=== PATIENT | female | born 1990 | race American Indian/Alaskan Native ===

== ENCOUNTER 2020-03-28 09:44 | Emergency (ER) | payer SELFPAY ==
--- NOTE | 2020-03-28 10:42 | XRay Report ---
CHEST PA AND LATERAL VIEWS INDICATION: Chest Pain. COMPARISON: None. FINDINGS: Support devices: None. Heart: Within normal limits. Lungs/Pleura: No acute pulmonary or pleural findings. IMPRESSION: 1. No acute findings. Signer Name: Javid Galvez MD Signed: 03/28/2020 10:38 AM Workstation Name: [id number]
--- NOTE | 2020-03-28 11:12 | Emergency Department Report ---
ED General Adult HPI - General Chief complaint: Chest Pain Stated complaint: CHEST PAIN Time Seen by Provider: 03/28/20 10:51 Source: patient Mode of arrival: Ambulatory Limitations: No Limitations - History of Present Illness Initial comments: Patient is a 29-year-old female presents emergency room with complaints of chest tightness and pressure that began a couple of months ago. she states that occasionally she has mild shortness of breath and discomfort with breathing. Patient states that over the last few months she began smoking marijuana and black in [place]. She states that every time she smokes she has pain. She states occasionally she feels nausea. She denies any vomiting, diarrhea, fever, cough, leg swelling. She states that she did have text for COVID-19 at the end of January but she states that she tested negative. She denies any past medical history. No allergies medications. Last menstrual cycle March 18. She denies any recent travel, recent surgery, immobilization, hormone use. She denies any family cardiac history, she denies any family history of DVT or PE. - Related Data Previous Rx's Medication Instructions Recorded Last Taken Type Famotidine [Pepcid] 40 mg PO QHS #14 tablet 03/28/20 Unknown Rx Naproxen [EC-Naprosyn] 375 mg PO BID #14 tablet. 03/28/20 Unknown Rx Prednisone [predniSONE 10 mg 10 mg PO .TAPER #1 tab.ds.pk 03/28/20 Unknown Rx (6-Day Pack, 21 Tabs)] Allergies Allergy/AdvReac Type Severity Reaction Status Date / Time No Known Allergies Allergy Unverified 03/28/20 09:49 ED Review of Systems ROS: Stated complaint: CHEST PAIN Other details as noted in HPI Comment: All other systems reviewed and negative ED Past Medical Hx - Past Medical History Previous Medical History?: No - Surgical History Past Surgical History?: No - Social History Smoking Status: Former Smoker Substance Use Type: Marijuana - Medications Home Medications: Home Medications Medication Instructions Recorded Confirmed Last Taken Type Famotidine [Pepcid] 40 mg PO QHS #14 tablet 03/28/20 Unknown Rx Naproxen [EC-Naprosyn] 375 mg PO BID #14 tablet. 03/28/20 Unknown Rx Prednisone [predniSONE 10 mg 10 mg PO .TAPER #1 tab.ds.pk 03/28/20 Unknown Rx (6-Day Pack, 21 Tabs)] ED Physical Exam - General Limitations: No Limitations General appearance: alert, in no apparent distress - Head Head exam: Present: atraumatic, normocephalic - Eye Eye exam: Present: normal appearance - ENT ENT exam: Present: mucous membranes moist - Respiratory Respiratory exam: Present: normal lung sounds bilaterally. Absent: respiratory distress, wheezes, rales, rhonchi, stridor, chest wall tenderness, accessory muscle use, decreased breath sounds, prolonged expiratory - Cardiovascular Cardiovascular Exam: Present: regular rate, normal rhythm, normal heart sounds. Absent: systolic murmur, diastolic murmur, rubs, gallop - Neurological Exam Neurological exam: Present: alert, oriented X3 - Psychiatric Psychiatric exam: Present: normal affect, normal mood - Skin Skin exam: Present: warm, dry, intact ED Course Vital Signs 03/28/20 03/28/20 03/28/20 09:49 09:50 11:28 Temperature 98.3 F 98.3 F Pulse Rate 63 55 L 43 L Respiratory 16 16 Rate Blood Pressure 131/72 131/72 119/75 O2 Sat by Pulse 98 99 99 Oximetry 03/28/20 11:30 Temperature Pulse Rate 58 L Respiratory 18 Rate Blood Pressure O2 Sat by Pulse 99 Oximetry ED Medical Decision Making - Lab Data Vital Signs 03/28/20 03/28/20 03/28/20 09:49 09:50 11:28 Temperature 98.3 F 98.3 F Pulse Rate 63 55 L 43 L Respiratory 16 16 Rate Blood Pressure 131/72 131/72 119/75 O2 Sat by Pulse 98 99 99 Oximetry 03/28/20 11:30 Temperature Pulse Rate 58 L Respiratory 18 Rate Blood Pressure O2 Sat by Pulse 99 Oximetry - EKG Data EKG shows normal: sinus rhythm, axis, intervals, QRS complexes, ST-T waves Rate: bradycardia - EKG Data 03/28/20 11:13 PAC no STEMI no signs of ischemia - Radiology Data Radiology results: report reviewed CHEST PA AND LATERAL VIEWS INDICATION: Chest Pain. COMPARISON: None. FINDINGS: Support devices: None. Heart: Within normal limits. Lungs/Pleura: No acute pulmonary or pleural findings. IMPRESSION: 1. No acute findings. Signer Name: Javid Galvez MD Signed: 03/28/2020 10:38 AM Workstation Name: [id number] Transcribed By: WILDER Dictated By: Javid Galvez MD Electronically Authenticated By: Javid Galvez MD Signed Date/Time: 03/28/20 1038 DD/ 1038 TD/TT: - Medical Decision Making Patient is a 29-year-old female presents emergency room with complaints of chest tightness and pressure that began a couple of months ago. she states that occasionally she has mild shortness of breath and discomfort with breathing. Patient states that over the last few months she began smoking marijuana and black in [place]. She states that every time she smokes she has pain. She states occasionally she feels nausea. She denies any vomiting, diarrhea, fever, cough, leg swelling. She states that she did have text for COVID-19 at the end of January but she states that she tested negative. She denies any past medical history. No allergies medications. Last menstrual cycle March 18. She denies any recent travel, recent surgery, immobilization, hormone use. She denies any family cardiac history, she denies any family history of DVT or PE. Vitals are normal. On exam breath sounds are clear bilaterally, no wheezing, no rhonchi, no rales, good air movement, patient is able to take it full inspiratory breath without regular rate and rhythm. EKG with sinus bradycardia, PAC, otherwise normal. CXR: 1. No acute findings. PERC criteria negative for PE, Wells score is 0, very low risk for PE. Patient does not have any cardiac risk factors other than smoking, this has been ongoing for months, ACS very unlikely. She states that she mostly feels the symptoms after smoking. She has no wheezing or rales. She has no clinical signs of bacterial pneumonia or bronchitis. Symptoms likely could be related to her smoking use. Could be related to pleuritis versus acid reflux. Patient will be given prescription for naproxen, prednisone, Pepcid. Advised patient Please take medication as prescribed. Follow-up with your primary care doctor. Return to emergency room for any new or worsening symptoms. - Differential Diagnosis anxiety, smoking rxn, URI, viral syndrome, PNA, pericarditis,pleuritis,GERD Critical care attestation.: If time is entered above; I have spent that time in minutes in the direct care of this critically ill patient, excluding procedure time. ED Disposition Clinical Impression: Chest tightness, Pleuritis Disposition: -01 TO HOME OR SELFCARE Is pt being admited?: No Does the pt Need Aspirin: No Condition: Stable Instructions: Pleurisy (ED), Gastroesophageal Reflux in Children (ED), Diet for Ulcers and Gastritis (ED) Additional Instructions: Please take medication as prescribed. Follow-up with your primary care doctor. Return to emergency room for any new or worsening symptoms. Prescriptions: Famotidine [Pepcid] 40 mg PO QHS #14 tablet Naproxen [EC-Naprosyn] 375 mg PO BID #14 tablet. Prednisone [predniSONE 10 mg (6-Day Pack, 21 Tabs)] 10 mg PO .TAPER #1 tab.ds.pk Referrals: PRIMARY CARE, [Primary Care Provider] - 2-3 Days CHYNA RENE MD [Staff Physician] - 2-3 Days [facility] [Provider Group] - 2-3 Days [facility], [LAB/CONTRACT] - 2-3 Days Time of Disposition: 11:14 Print Language: TURKMEN
[2020-03-28 11:54] VITALS: BP 119/75
== END 2020-03-28 11:30 | disposition home or self-care (01) ==
LOC: ED 09:44
DX: R09.1 Pleurisy (principal); F12.10 Cannabis abuse, uncomplicated; F17.200 Nicotine dependence, unspecified, uncomplicated; Z79.899 Other long term (current) drug therapy
CPT/HCPCS: 71046; 93005; 99283

== ENCOUNTER 2020-12-03 20:01 | Emergency (ER) | payer SELFPAY ==
[2020-12-03 21:33] VITALS: BP 124/88
[2020-12-03] MEDS ORDERED: ONDANSETRON 4 MG ODT TAB PO ONE (22:00)
[2020-12-03] MEDS ORDERED: ACETAMINOPHEN 500 MG TAB PO ONE (22:14)
--- NOTE | 2020-12-03 22:21 | Emergency Department Report ---
ED General Adult HPI - General Chief complaint: Nausea/Vomiting/Diarrhea Stated complaint: HEAD ACHES/HOT FLASHES Time Seen by Provider: 12/03/20 22:00 Source: patient Mode of arrival: Ambulatory Limitations: No Limitations - History of Present Illness Initial comments: Patient a 29-year-old female who presents for nausea headache and hot flashes for the past 2 days. Patient states she was recently released from skilled nursing. States questionable Covid contact. However there is been no fevers, chills, shortness of breath no cough no diarrhea. Symptoms are exacerbated by activity. Symptoms are relieved by nothing tried. - Related Data Previous Rx's Medication Instructions Recorded Last Taken Type Famotidine [Pepcid] 40 mg PO QHS #14 tablet 03/28/20 Unknown Rx Naproxen [EC-Naprosyn] 375 mg PO BID #14 tablet. 03/28/20 Unknown Rx Prednisone [predniSONE 10 mg 10 mg PO .TAPER #1 tab.ds.pk 03/28/20 Unknown Rx (6-Day Pack, 21 Tabs)] Butalb/Acetaminophen/Caffeine 1 cap PO Q6HR PRN #12 cap 12/04/20 Unknown Rx [Fioricet 50-300-40 mg CAP] Allergies Allergy/AdvReac Type Severity Reaction Status Date / Time No Known Allergies Allergy Unverified 03/28/20 09:49 ED Review of Systems ROS: Stated complaint: HEAD ACHES/HOT FLASHES Other details as noted in HPI Constitutional: denies: chills, fever Eyes: denies: eye pain, eye discharge, vision change ENT: congestion. denies: ear pain, throat pain Respiratory: denies: cough, shortness of breath, wheezing Cardiovascular: denies: chest pain, palpitations Endocrine: no symptoms reported Gastrointestinal: nausea. denies: diarrhea, constipation Genitourinary: denies: urgency, dysuria, frequency, hematuria, discharge Musculoskeletal: denies: back pain, joint swelling, arthralgia Skin: denies: rash, lesions Neurological: headache. denies: weakness, paresthesias Psychiatric: denies: anxiety, depression Hematological/Lymphatic: denies: easy bleeding, easy bruising ED Past Medical Hx - Past Medical History Previous Medical History?: No - Surgical History Past Surgical History?: No - Social History Smoking Status: Current Every Day Smoker Substance Use Type: Alcohol, Marijuana - Medications Home Medications: Home Medications Medication Instructions Recorded Confirmed Last Taken Type Famotidine [Pepcid] 40 mg PO QHS #14 tablet 03/28/20 Unknown Rx Naproxen [EC-Naprosyn] 375 mg PO BID #14 tablet.dr 03/28/20 Unknown Rx Prednisone [predniSONE 10 mg 10 mg PO .TAPER #1 tab.ds.pk 03/28/20 Unknown Rx (6-Day Pack, 21 Tabs)] Butalb/Acetaminophen/Caffeine 1 cap PO Q6HR PRN #12 cap 12/04/20 Unknown Rx [Fioricet 50-300-40 mg CAP] ED Physical Exam - General Limitations: No Limitations General appearance: alert, in no apparent distress - Head Head exam: Present: atraumatic, normocephalic - Eye Eye exam: Present: EOMI Pupils: Present: normal accommodation - ENT ENT exam: Present: normal exam - Neck Neck exam: Present: normal inspection, full ROM. Absent: tenderness - Respiratory Respiratory exam: Present: normal lung sounds bilaterally. Absent: respiratory distress, wheezes, stridor - Cardiovascular Cardiovascular Exam: Present: regular rate, normal rhythm, normal heart sounds. Absent: systolic murmur, diastolic murmur, rubs, gallop - GI/Abdominal GI/Abdominal exam: Present: soft, normal bowel sounds. Absent: distended, tenderness, guarding, rebound, rigid, bruit, other - Rectal Rectal exam: Present: deferred - Extremities Exam Extremities exam: Present: normal inspection, full ROM, normal capillary refill. Absent: tenderness - Back Exam Back exam: Present: normal inspection, full ROM. Absent: tenderness, CVA tenderness (R), CVA tenderness (L) - Neurological Exam Neurological exam: Present: alert, oriented X3, CN II-XII intact, normal gait - Psychiatric Psychiatric exam: Present: normal affect, normal mood - Skin Skin exam: Present: warm, dry, intact, normal color. Absent: rash ED Course Vital Signs 12/03/20 21:08 Temperature 98.5 F Pulse Rate 55 L Respiratory 18 Rate Blood Pressure 124/88 O2 Sat by Pulse 100 Oximetry ED Medical Decision Making - Lab Data Result diagrams: 12/03/20 22:27 Labs 12/03/20 12/03/20 22:27 Unknown WBC 7.7 RBC 4.34 Hgb 13.3 Hct 40.0 MCV 92 MCH 31 MCHC 33 RDW 13.1 L Plt Count 224 Lymph % (Auto) 39.4 H [place] % (Auto) 10.4 H Eos % (Auto) 1.8 Baso % (Auto) 0.6 Lymph # (Auto) 3.0 [place] # (Auto) 0.8 Eos # (Auto) 0.1 Baso # (Auto) 0.0 Seg Neutrophils % 47.8 Seg Neutrophils # 3.7 Urine Color Yellow Urine Turbidity Hazy Urine pH 5.0 Ur Specific [place] 1.021 Urine Protein <15 mg/dl Urine Glucose (UA) Neg Urine Ketones Neg Urine Blood Neg Urine Nitrite Neg Ur Reducing Substances Not Reportable Urine Bilirubin Neg Urine Ictotest Not Reportable Urine Urobilinogen < 2.0 Ur Leukocyte Esterase Neg Urine WBC (Auto) 1.0 Urine RBC (Auto) 1.0 U Epithel Cells (Auto) 10.0 Urine Mucus Few Urine HCG, Qual Negative - Medical Decision Making Headache is improved plan patient advises ready to go home. Patient tolerating p.o. intake without nausea vomiting at this time. Patient will be DC'd home in stable condition. Patient will follow with primary care doctor in 1 to 2 days. Patient verbalized agreement understanding with discharge plan. Patient will be DC'd in stable condition at this time. Critical care attestation.: If time is entered above; I have spent that time in minutes in the direct care of this critically ill patient, excluding procedure time. ED Disposition Clinical Impression: Headache Qualifiers: Headache type: unspecified Headache chronicity pattern: acute headache Intractability: not intractable Qualified Code(s): R51.9 - Headache, unspecified Disposition: DC-01 TO HOME OR SELFCARE Is pt being admited?: No Does the pt Need Aspirin: No Condition: Stable Instructions: Migraine Headache, [id number] Additional Instructions: Take medications as prescribed, return to emergency if symptoms worsen. Prescriptions: Butalb/Acetaminophen/Caffeine [Fioricet 50-300-40 mg CAP] 1 cap PO Q6HR PRN #12 cap PRN Reason: Headache Referrals: MACIEJ GLASS MD [Referring] - 3-5 Days Forms: Work/School Release Form(ED) Time of Disposition: 00:05
[2020-12-03 23:05] LABS: Basophils % (Auto) 0.6 % (0.0-1.8); Eosinophils # (Auto) 0.1 K/mm3 (0.0-0.4); Eosinophils % (Auto) 1.8 % (0.0-4.3); Hemoglobin 13.3 gm/dl (10.1-14.3); Lymphocytes % (Auto) 39.4 % (13.4-35.0); Mean Corpuscular HGB Conc 33 % (30-34); Mean Corpuscular Volume 92 fl (79-97); Monocytes # (Auto) 0.8 K/mm3 (0.0-0.8); Monocytes % (Auto) 10.4 % (0.0-7.3); Platelet Count 224 K/mm3 (140-440); Red Blood Count 4.34 M/mm3 (3.65-5.03); Red Cell Distribution Width 13.1 % (13.2-15.2)
[2020-12-03 23:41] LABS: HCG Qualitative,Urine Negative (Negative)
[2020-12-03 23:44] LABS: Bilirubin,Urine NEG (Negative); Blood,Urine NEG (Negative); Color,Urine Yellow (Yellow); Mucus,Urine FEW /HPF; Protein,Urine <15 mg/dL mg/dL (Negative); Urobilinogen,Urine < 2.0 mg/dL (<2.0)
== END 2020-12-04 00:20 | disposition home or self-care (01) ==
LOC: ED 20:01
DX: R51.9 Headache, unspecified (principal); R11.0 Nausea; F17.200 Nicotine dependence, unspecified, uncomplicated; F12.90 Cannabis use, unspecified, uncomplicated; Z72.89 Other problems related to lifestyle; Z79.899 Other long term (current) drug therapy
CPT/HCPCS: 36415; 81001; 81025; 85025; 99283; Q0162